=== PATIENT | female | born 1980 | race Two or more races ===

== ENCOUNTER 2017-11-10 12:18 | Emergency (ER) | payer OTHER ==
[~2017-11-10] VITALS: Ht 157.5 cm; Wt 81.6 kg
[2017-11-10 12:27] VITALS: BP 116/65
[2017-11-10] MEDS ORDERED: ACETAMINOPHEN ES 500 MG TABLET ONE (13:56)
[2017-11-10] MEDS ORDERED: ACETAMINOPHEN 325 MG TABLET PO ONE (14:00)
== END 2017-11-10 14:01 ==
LOC: ER 12:21
DX: M25.512 Pain in left shoulder (principal); I10 Essential (primary) hypertension; Z88.6 Allergy status to analgesic agent; W18.39XA Other fall on same level, initial encounter; Y93.89 Activity, other specified; Y92.89 Other specified places as the place of occurrence of the external cause; Y99.8 Other external cause status
CPT/HCPCS: 73030-TC; A4606; Z7610

== ENCOUNTER 2017-12-05 05:20 | Emergency (ER) | payer MEDICAID ==
[~2017-12-05] VITALS: Ht 152.4 cm; Wt 79.4 kg
[2017-12-05 05:26] VITALS: BP 124/87
== END 2017-12-05 06:00 | disposition home or self-care (01) ==
LOC: ER 05:20
DX: H92.01 Otalgia, right ear (principal); J02.9 Acute pharyngitis, unspecified; Z88.6 Allergy status to analgesic agent
CPT/HCPCS: 99282; A4606; Z7610